=== PATIENT | female | born 1935 | race Asian ===

== ENCOUNTER 2018-09-04 11:55 | Inpatient (IN) ==
[2018-09-04] MEDS ORDERED: ACETAMINOPHEN 325 MG TAB PO STA (12:32)
--- NOTE | 2018-09-04 13:06 | XRay Report ---
XR hip RT 2-3V w pelvis CLINICAL HISTORY: Right hip pain status post trauma COMPARISON: None DISCUSSION: There is a subcapital right hip fracture. There is no dislocation. IMPRESSION: 1. Subcapital right hip fracture. No evidence of dislocation. Electronically signed by: Christian Chavez M.D. 09/04/2018 1:04 PM
--- NOTE | 2018-09-04 13:06 | XRay Report ---
XR femur RT 2V routine CLINICAL HISTORY: fall, pain COMPARISON: None. DISCUSSION: There is a subcapital right hip fracture. There is no dislocation. No additional femoral fractures are visualized. IMPRESSION: Subcapital right hip fracture. Electronically signed by: Christian Chavez M.D. 09/04/2018 1:05 PM
[2018-09-04] MEDS ORDERED: ONDANSETRON INJ 2 MG/ML 2 ML VIAL IV STA (13:31)
[2018-09-04] MEDS ORDERED: MoRPHine SULFATE 2 MG/ML CARP IV PRN (13:31)
[2018-09-04] MEDS ORDERED: SODIUM CHLORIDE 0.9% 500 ML IV ONE (13:31)
--- NOTE | 2018-09-04 13:46 | XRay Report ---
XR chest 1V portable CLINICAL HISTORY: Hip fracture. Preoperative chest COMPARISON STUDY: None FINDINGS: The heart is normal in size. There is aortic tortuosity. There is no failure. There is no f ocal pulmonary consolidation. There are no pleural effusions.[ IMPRESSION: No active disease in the chest. Electronically signed by: Christian Chavez M.D. 09/04/2018 1:44 PM
[2018-09-04 14:07] LABS: Hemoglobin 14.4 g/dL (12.0-16.0); Mean Corpuscular Hgb Conc 32.7 g/dL (32-36); Mean Corpuscular Volume 88.2 fL (80-100); Mean Platelet Volume 9.3 fL (7.4-10.4); Platelet Count 240 K/uL (130-400); RDW Coefficient of Variation 14.3 % (11.5-14.5); RDW Standard Deviation 45.8 fL (36.4-46.3); Red Blood Count 4.99 M/uL (4.2-5.4); White Blood Count 10.83 K/uL (4.8-10.8)
[2018-09-04 14:25] LABS: Albumin Level 3.5 gm/dl (3.4-5.0); BUN Creatinine Ratio 11.1 (10-20); Calcium 8.8 mg/dl (8.5-10.1); Creatinine Clr Calc Pharmacy 30.1 ml/min; Est GFR (Non-African American) 52.6; Potassium 3.6 mmol/L (3.5-5.1)
[2018-09-04 14:28] LABS: Albumin Globulin Ratio 0.7 (0.9-2); Bilirubin,Total 0.7 mg/dl (0.2-1); Globulin 4.7 gm/dl (2.5-4.0); Total Protein 8.2 gm/dl (6.4-8.2)
[2018-09-04 14:52] LABS: Partial Thromboplastin Ratio 1.1; Partial Thromboplastin Time 29.8 Seconds (21.0-31.0)
[2018-09-04 14:59] LABS: Appearance Urine Clear (Clear); Bacteria Urine Automated Negative (Negative); Bilirubin Urine Negative (Negative); Color Urine Yellow; Epithelial Cell Urine Auto 20-30 /lpf (0-5); Glucose Urine UA Negative (Negative); Ketones Urine Negative (Negative); Leukocyte Esterase Urine Trace (Negative); Nitrite Urine Negative (Negative); Protein Urine Trace (Negative); Urobilinogen Urine Negative (Negative)
--- NOTE | 2018-09-04 15:21 | Emergency Department Note ---
Entered by Jameel Johnson acting as a scribe for Rafael Cortes MD History of Present Illness General Chief complaint: Fall Stated complaint: FALL Time Seen by Provider: 09/04/18 12:18 Source: patient and family (son) History of Present Illness Onset (ago): day(s) (last night) Location: right (hip) Pain Consistency: + constant Quality: + other (right hip pain after fall) Exacerbated By: + movement Associated symptoms: + other (denies neck pain or right arm pain; denies recent illness); no headaches The patient is an 83 year old female who presents to the Emergency Room with complaints of constant right leg/hip pain beginning after a fall occurring last night. The son reports that last night at the [facility], he walked out of the room, and when he came back in the patient was lying on the floor on her side by her bedside commode. Since the fall, the patient has been complaining of right hip pain that is worsened with movement. He noticed this morning that the patient�s glasses were broken on the right side and reports an abrasion near her right eye. The patient denies headaches, neck pain, or right arm pain. The son states that she does not take blood thinners and denies recent fevers, cough, or other illness. He notes that prior to last night the patient had been relatively stable using her walker to travel to and from the bathroom. He states that the patient has recently been eating more. He reports that the patient had right SI joint issues a few years ago that was treated with cortisone and physical therapy. He denies a history of hip surgeries. Home Medications Home Medications Medication Instructions Recorded Confirmed Type cholecalciferol (vitamin D3) 1,000 unit PO QAM 09/04/18 09/04/18 History [Vitamin D3] docusate sodium [Colace] 100 mg PO BID 09/04/18 09/04/18 History mirtazapine 15 mg PO HS 09/04/18 09/04/18 History quetiapine [Seroquel] 25 mg PO BID 09/04/18 09/04/18 History Allergies Allergy/AdvReac Type Severity Reaction Status Date / Time methylphenidate Allergy Severe Palpitation Unverified 09/04/18 13:15 [From Ritalin] s bupropion Allergy Intermediate Nausea Unverified 09/04/18 13:15 desvenlafaxine [From Pristiq] Allergy Intermediate Nausea Unverified 09/04/18 13 :15 Sulfa (Sulfonamide Allergy Intermediate Nausea Unverified 09/04/18 13:15 Antibiotics) trazodone Allergy Intermediate Nausea Unverified 09/04/18 13:15 vilazodone Allergy Intermediate Nausea Unverified 09/04/18 13:15 Past Med/Surg History Medical History Alzheimer disease (Chronic) Osteoporosis (Chronic) Alzheimer's disease (Chronic) Surgical History Hx of cholecystectomy (Resolved) History of parathyroidectomy (Resolved) Family History Other Diabetes Social History Current Living Situation: Family Current Living Situation Comment: lives with son and family Other Information That Helps Us Care for You: No Feels Safe at Home: Yes Safety Concerns: Feels Safe At This Time Smoking Status: Never smoker Do You Dip or Chew Tobacco: No Second Hand Exposure: No Tobacco Cessation Education Requested by Patient: No Hx Alcohol Use: No Hx Substance Use: No Beliefs That Will Affect Care: None Preferred Language: Sinhala Communication Ability: dementia Street Commissioner Required: No Review of Systems See HPI for pertinent positives & negatives. and A total of 10 systems reviewed and were otherwise negative Physical Exam Vital Signs Vital Signs - 24 hr 09/04/18 12:02 09/04/18 14:50 09/04/18 15:58 Temperature 37.6 C H Temperature Source Oral Sepsis Recent Fever Within 48 Hours No Sepsis New/Unexplained Change in Mental Status No Sepsis Action Taken by Nursing No Action Required Pulse Rate 99 H 90 Pulse Rate [Finger] 90 Respiratory Rate 16 20 17 Respiratory Effort / Characteristics Non-Labored Respiratory Depth Normal Respiratory Pattern Regular Blood Pressure 152/87 H 160/86 H Blood Pressure [Right Arm] 150/93 H Blood Pressure Mean 108 Blood Pressure Mean [Right Arm] 112 Blood Pressure Position [Right Arm] Lying Pulse Oximetry 95 97 92 Oxygen Delivery Method Room Air Room Air Room Air 09/04/18 16:35 Temperature 37.4 C Temperature Source Oral Sepsis Recent Fever Within 48 Hours Sepsis New/Unexplained Change in Mental Status Sepsis Action Taken by Nursing Pulse Rate Pulse Rate [Finger] 88 Respiratory Rate 16 Respiratory Effort / Characteristics Respiratory Depth Respiratory Pattern Blood Pressure Blood Pressure [Right Arm] 151/88 H Blood Pressure Mean Blood Pressure Mean [Right Arm] 109 Blood Pressure Position [Right Arm] Sitting Pulse Oximetry 92 Oxygen Delivery Method Room Air GENERAL: Patient is in no acute distress. HEENT: Abrasion to the area just lateral of the right eye, no laceration, no bony step-off. Right globe uninjured, no scalp hematoma. Mucous membranes are moist. NECK: No stridor, no adenopathy, no meningismus, trachea is midline. LUNGS: Clear to auscultation bilaterally, no wheeze, no rhonchi, breath sounds equal. HEART: Without murmurs gallops or rubs, regular rate and rhythm. ABDOMEN: Soft, nontender, bowel sounds positive, no hernias, no peritonitis. EXTREMITIES: Some pain in the right hip with right leg movement, no gross deformity. Right mid femur is somewhat tender. No obvious contusions. Right knee and ankle are non-tender. NEUROLOGIC: Oriented x 3, no acute motor or sensory deficits, no focal weakness. SKIN: No rash, no jaundice, no diaphoresis. Course 1220: Past medical records reviewed. The patient was evaluated in room D9, and a complete history and physical examination were performed. 1328: I discussed test results with the patient and her family. They are aware that the patient will require an operation. 1338: I consulted Cassandra Boland PA-C: [facility] Hospitalist. She will reevaluate the patient for hospitalization. Consultations Consultation #1: I consulted Cassandra Boland PA-C: [facility]ist. She will reevaluate the patient for hospitalization. Time: 13:38 Administered Medications Discontinued Medications Acetaminophen (Tylenol) 650 mg PO NOW STA Stop: 09/04/18 12:33 Last Admin: 09/04/18 12:35 Dose: 650 mg Sodium Chloride (Nss) 500 mls @ 999 mls/hr IV .Q31M ONE Stop: 09/04/18 14:01 Last Infusion: 09/04/18 14:52 Dose: 0 mls/hr Admin: 09/04/18 14:11 Dose: 999 mls/hr Morphine Sulfate (Morphine Sulfate) 2 mg IV Q30M PRN PRN Reason: Pain Stop: 09/18/18 13:30 Last Admin: 09/04/18 14:11 Dose: 2 mg Ondansetron HCl (Zofran) 4 mg IV NOW STA Stop: 09/04/18 13:32 Last Admin: 02/17/19 14:11 Dose: 4 mg Medical Decision Making Differential Diagnosis Differential diagnosis: pelvic fracture, hip or femur fracture, contusion, hematoma, sprain, intracranial bleeding, facial fracture, cervical spine injury , infection Medical Records Attestation: I reviewed the patient's medical records. Home Medications Current Medication List: was personally reviewed by me Laboratory Data Attestation: I reviewed the patient's lab results. Result diagrams: 09/04/18 13:58 09/04/18 13:58 Lab Results 09/04/18 09/04/18 09/04/18 Range/Units 13:58 13:58 13:58 WBC 10.83 H (4.8-10.8) K/uL RBC 4.99 (4.2-5.4) M/uL Hgb 14.4 (12.0-16.0) g/dL Hct 44.0 (37-47) % MCV 88.2 (80-100) fL MCH 28.9 (25-34) pg MCHC 32.7 (32-36) g/dL RDW Std Deviation 45.8 (36.4-46.3) fL RDW Coeff of Jayme 14.3 (11.5-14.5) % Plt Count 240 (130-400) K/uL MPV 9.3 (7.4-10.4) fL PT 10.0 (9.0-12.0) Seconds INR 1.0 (0.9-1.1) APTT 29.8 (21.0-31.0) Seconds PTT Ratio 1.1 Sodium 139 (136-145) mmol/L Potassium 3.6 (3.5-5.1) mmol/L Chloride 106 (98-107) mmol/L Carbon Dioxide 28 (21-32) mmol/L Anion Gap 5.0 (3-11) BUN 11 (7-18) mg/dl Creatinine 0.98 (0.6-1.2) mg/dl Est Cr Clr Drug Dosing 30.1 ml/min Est GFR ( Amer) 61.0 Est GFR (Non-Af Amer) 52.6 BUN/Creatinine Ratio 11.1 (10-20) Glucose 126 H (70-99) mg/dl Calcium 8.8 (8.5-10.1) mg/dl Total Bilirubin 0.7 (0.2-1) mg/dl AST 23 (15-37) U/L ALT 24 (12-78) U/L Alkaline Phosphatase 88 (45-117) U/L Total Protein 8.2 (6.4-8.2) gm/dl Albumin 3.5 (3.4-5.0) gm/dl Globulin 4.7 H (2.5-4.0) gm/dl Albumin/Globulin Ratio 0.7 L (0.9-2) Urine Color Urine Appearance (Clear) Urine pH (4.5-7.5) Ur Specific [place] (1.000-1.030) Urine Protein (Negative) Urine Glucose (UA) (Negative) Urine Ketones (Negative) Urine Blood (Negative) Urine Nitrite (Negative) Urine Bilirubin (Negative) Urine Urobilinogen (Negative) Ur Leukocyte Esterase (Negative) Urine WBC (Auto) (0-5) /hpf Urine RBC (Auto) (0-4) /hpf U Hyaline Cast (Auto) (0-5) /lpf U Epithel Cells (Auto) (0-5) /lpf Urine Bacteria (Auto) (Negative) 09/04/18 Range/Units 14:26 WBC (4.8-10.8) K/uL RBC (4.2-5.4) M/uL Hgb (12.0-16.0) g/dL Hct (37-47) % MCV (80-100) fL MCH (25-34) pg MCHC (32-36) g/dL RDW Std Deviation (36.4-46.3) fL RDW Coeff of Jayme (11.5-14.5) % Plt Count (130-400) K/uL MPV (7.4-10.4) fL PT (9.0-12.0) Seconds INR (0.9-1.1) APTT (21.0-31.0) Seconds PTT Ratio Sodium (136-145) mmol/L Potassium (3.5-5.1) mmol/L Chloride (98-107) mmol/L Carbon Dioxide (21-32) mmol/L Anion Gap (3-11) BUN (7-18) mg/dl Creatinine (0.6-1.2) mg/dl Est Cr Clr Drug Dosing ml/min Est GFR ( Amer) Est GFR (Non-Af Amer) BUN/Creatinine Ratio (10-20) Glucose (70-99) mg/dl Calcium (8.5-10.1) mg/dl Total Bilirubin (0.2-1) mg/dl AST (15-37) U/L ALT (12-78) U/L Alkaline Phosphatase (45-117) U/L Total Protein (6.4-8.2) gm/dl Albumin (3.4-5.0) gm/dl Globulin (2.5-4.0) gm/dl Albumin/Globulin Ratio (0.9-2) Urine Color Yellow Urine Appearance Clear (Clear) Urine pH 7.0 (4.5-7.5) Ur Specific [place] 1.020 (1.000-1.030) Urine Protein Trace H (Negative) Urine Glucose (UA) Negative (Negative) Urine Ketones Negative (Negative) Urine Blood Trace H (Negative) Urine Nitrite Negative (Negative) Urine Bilirubin Negative (Negative) Urine Urobilinogen Negative (Negative) Ur Leukocyte Esterase Trace H (Negative) Urine WBC (Auto) 1-5 (0-5) /hpf Urine RBC (Auto) 5-10 H (0-4) /hpf U Hyaline Cast (Auto) 1-5 (0-5) /lpf U Epithel Cells (Auto) 20-30 H (0-5) /lpf Urine Bacteria (Auto) Negative (Negative) Imaging Data Radiologist's Impression: Radiology results as stated below per my review and the radiologist's interpretation: XR chest 1V portable CLINICAL HISTORY: Hip fracture. Preoperative chest COMPARISON STUDY: None FINDINGS: The heart is normal in size. There is aortic tortuosity. There is no failure. There is no focal pulmonary consolidation. There are no pleural effusions.[ IMPRESSION: No active disease in the chest. Electronically signed by: Christian Chavez M.D. 09/04/2018 1:44 PM XR femur RT 2V routine CLINICAL HISTORY: fall, pain COMPARISON: None. DISCUSSION: There is a subcapital right hip fracture. There is no dislocation. No additional femoral fractures are visualized. IMPRESSION: Subcapital right hip fracture. Electronically signed by: Christian Chavez M.D. 09/04/2018 1:05 PM XR hip RT 2-3V w pelvis CLINICAL HISTORY: Right hip pain status post trauma COMPARISON: None DISCUSSION: There is a subcapital right hip fracture. There is no dislocation. IMPRESSION: 1. Subcapital right hip fracture. No evidence of dislocation. Electronically signed by: Christian Chavez M.D. 09/04/2018 1:04 PM ECG Data Attestation: I personally reviewed and interpreted this ECG as follows: Indication: other (hip fracture) Rate (beats per minute): 93 Rhythm: normal sinus Findings: + other (potential old septal infarct) and + nonspecific-ST abn; no PVC and no ST elevation Blood Pressure Blood Pressure Findings: Elevated blood pressure Blood Pressure Disposition: further management by hospitalist Head Trauma GCS Score: 15 MDM Narrative There is no leukocytosis or concerning anemia. No coagulopathy. No significant electrolyte abnormality, kidney failure or hepatitis. Urinalysis does not show evidence for infection. EKG shows a sinus rhythm, no dysrhythmia or acute ischemia. Chest film does not show pneumonia or CHF. Pelvis and right hip and femur films demonstrate a right subcapital hip fracture, no pelvis fracture. The patient was given oral Tylenol. She was given IV morphine and IV Zofran. She received IV saline. With the findings of hip fracture, the patient does require orthopedic intervention and a hospital stay. I discussed this with the family. I spoke to case management. The on-call hospitalist was consulted. The patient does not appear to have a serious injury elsewhere. The abrasion to the area of the face just lateral to the eye is likely from her glasses. She does not take any blood thinners, she does not have a headache. No evidence for cervical injury by exam. Impression & Plan Closed right hip fracture, Fall, Abrasion of face Discharge Plan Visit Data *Final* Discharge Date/Time: 09/04/18 15:58 Chief Complaint: Fall Stated Complaint: FALL ED Provider: Rafael Cortes Discharge Problem: Closed right hip fracture, Fall, Abrasion of face Patient Disposition: Admitted As Inpatient Discharge Instructions Interventions: ED Discharge Assessment Last Done: 09/04/18 15:58 The scribe's documentation has been prepared under my direction and personally reviewed by me in its entirety. I confirm that the note above accurately reflects all work, treatment, procedures, and medical decision making performed by me.
--- NOTE | 2018-09-04 15:37 | History & Physical Report ---
Date of Service September 04, 2018 Assessment & Plan (1) Fall: (2) Closed right hip fracture: This is an 83-year-old female with a PMH of Alzheimer's disease and osteoporosis who presents after a fall in her hotel room last evening and was found to have a R subcapital right hip fracture. -Discussed with Dr. Hayes, who plans to take patient to OR tomorrow -NPO after midnight except meds -Pain control, pre-op antibiotics ordered per geriatric fracture protocol -Anesthesiology, ortho surgery services consulted -Pre-operative lab work: hgb stable at 14.4, Cr of 0.98, GFR of 52.6, coags WNL -EKG, chest XR without acute abnormalities -Per Revised Cardiac Risk Index for Pre-Op Risk, there is a 0.4% risk of major cardiac event -Family interested in patient completing any rehab closer to home ([facility] ) -Discharge planning ordered DVT Ppx: SCDs Code status: FULL per discussion with patient PCP: Dr. Durbin in [place] Dispo: Admitted to med/surg. Discharge planning ordered. Patient seen in collaboration with Dr. Grigsby. Please see addendum. History of Present Illness Chief Complaint: Fall last evening, hip fracture Primary Care Provider: MAGDALENO DURBIN This is an 83-year-old female with a PMH of Alzheimer's disease and osteoporosis who presents after a fall in her hotel room last evening. Patient is traveling with her son and [id number] from [facility] for the weekend. Was using bedside commode in her hotel room when she slid off, landing on her right side. Denies head trauma or LOC. Was initially complaining of right knee pain but was able to sleep through the night. This morning, son was attempting to help transfer patient but she was having difficulty moving due to pain. Brought her to the ED for further evaluation. Patient endorses constant right hip pain, exacerbated by movement and somewhat alleviated by IV morphine. Has an abrasion on side of face that is non-tender. Denies any fever, chills, lightheadedness, headache, chest pain, palpitations, shortness of breath , nausea, vomiting, abdominal pain, dysuria, diarrhea or constipation. Last bowel movement was yesterday. Patient's PCP is located in [facility]. Ambulatory baseline is with a walker at home, but uses a wheelchair when traveling. No known cardiac or pulmonary medical history. Denies history of MA, CHF, DVT/PE, CVA or CKD. A few years ago, was experiencing failure to thrive due and appetite suppression from medications for dementia and was placed on hospice. Once medications were stopped, the patient reportedly gained 40 pounds and was taken off of hospice. Health has been much better since then. Son and [id number] live with patient. Allergies Allergy/AdvReac Type Severity Reaction Status Date / Time methylphenidate Allergy Severe Palpitation Unverified 09/04/18 13:15 [From Ritalin] s bupropion Allergy Intermediate Nausea Unverified 09/04/18 13:15 desvenlafaxine [From Pristiq] Allergy Intermediate Nausea Unverified 09/04/18 13 :15 Sulfa (Sulfonamide Allergy Intermediate Nausea Unverified 09/04/18 13:15 Antibiotics) trazodone Allergy Intermediate Nausea Unverified 09/04/18 13:15 vilazodone Allergy Intermediate Nausea Unverified 09/04/18 13:15 Home Medications Home Medications Medication Instructions Recorded Confirmed Type cholecalciferol (vitamin D3) 1,000 unit PO QAM 09/04/18 09/04/18 History [Vitamin D3] docusate sodium [Colace] 100 mg PO BID 09/04/18 09/04/18 History mirtazapine 15 mg PO HS 09/04/18 09/04/18 History quetiapine [Seroquel] 25 mg PO BID 09/04/18 09/04/18 History Past Med/Surg History Medical History Alzheimer disease (Chronic) Osteoporosis (Chronic) Alzheimer's disease (Chronic) Surgical History Hx of cholecystectomy (Resolved) History of parathyroidectomy (Resolved) Family History Other Diabetes Social History Current Living Situation: Family Current Living Situation Comment: lives with son and family Other Information That Helps Us Care for You: No Feels Safe at Home: Yes Safety Concerns: Feels Safe At This Time Smoking Status: Never smoker Do You Dip or Chew Tobacco: No Second Hand Exposure: No Tobacco Cessation Education Requested by Patient: No Hx Alcohol Use: No Hx Substance Use: No Beliefs That Will Affect Care: None Preferred Language: Gabonese Communication Ability: dementia Stock Or Delivery Clerk Required: No Review of Systems Constitutional: no fever, no chills, no fatigue and no weakness Eyes: no worsening vision Ear, Nose, Mouth, Throat: no nasal congestion, no sore throat and no dysphagia Respiratory: no cough, no chest congestion, no dyspnea and no wheezing Cardiovascular: no chest pain, no radiating jaw, neck or arm pain, no syncope and no edema Gastrointestinal: no abdominal pain, no nausea, no vomiting and no change in stools Genitourinary (Female): no dysuria and no hematuria Musculoskeletal: + problem reported (Right hip pain since fall); no back pain Integumentary: no rash, no non-healing lesions and no change in skin color Neurologic: + falls; no localized weakness, no numbness, no seizure-like activity, no headache(s) and no confusion Psychiatric: no behavioral changes Physical Exam 2 Vital Signs (Past 24 Hours): Last Vital Signs Temp 37.6 C H 09/04/18 12:02 Pulse 90 09/04/18 14:50 Resp 20 09/04/18 14:50 BP 150/93 H 09/04/18 14:50 Pulse Ox 97 09/04/18 14:50 Physical Exam: General Appearance: WD/WN, no apparent distress, mild distress from pain Head: normocephalic, atraumatic Eyes: normal inspection, PERRL, EOMI ENT: hearing grossly normal, pharynx normal (moist mucous membranes) Neck: supple, no JVD, no adenopathy Respiratory/Chest: lungs clear to auscultation. No wheezes, rales or rhonci. No respiratory distress or accessory muscle use Cardiovascular: regular rate, rhythm, no murmur, normal peripheral pulses Abdomen/GI: normal bowel sounds, soft, non-tender to palpation : Cervantes catheter in place Extremities/Musculoskelatal: normal inspection, no calf tenderness, normal capillary refill, no pedal edema. Right hip tender to palpation. Skin intact. No deformities or bruising noted. Neurologic/Psych: alert, normal mood/affect, oriented x 3 Skin: normal color, warm/dry Results & Data Laboratory Results Short CBC 09/04/18 Range/Units 13:58 WBC 10.83 H (4.8-10.8) K/uL Hgb 14.4 (12.0-16.0) g/dL Hct 44.0 (37-47) % Plt Count 240 (130-400) K/uL BMP 09/04/18 13:58 Sodium 139 Potassium 3.6 Chloride 106 Carbon Dioxide 28 BUN 11 Creatinine 0.98 Glucose 126 H Calcium 8.8 Liver Function 09/04/18 Range/Units 13:58 Total Bilirubin 0.7 (0.2-1) mg/dl AST 23 (15-37) U/L ALT 24 (12-78) U/L Alkaline Phosphatase 88 (45-117) U/L Albumin 3.5 (3.4-5.0) gm/dl Urine 09/04/18 Range/Units 14:26 Urine Color Yellow Urine Appearance Clear (Clear) Urine pH 7.0 (4.5-7.5) Ur Specific [place] 1.020 (1.000-1.030) Urine Protein Trace H (Negative) Urine Glucose (UA) Negative (Negative) Diagnostic Findings CXR: IMPRESSION: No active disease in the chest. Hip/pelvis XR: IMPRESSION: 1. Subcapital right hip fracture. No evidence of dislocation. Femur XR: IMPRESSION: Subcapital right hip fracture. ECG Rhythm: normal sinus Additional Comments: Septal infarct , age undetermined Code Status & VTE Plan Code Status FULL VTE Prophylaxis Plan VTE Prophylaxis will be ordered: Yes Supervising Physician Co-Signing Physician Notes 83-year-old female with a PMH of Alzheimer's disease and osteoporosis who presents to the ER after a fall in her hotel room last night when she was using the commode. This morning she was having difficulty to move due to the pain. She denies any head trauma and LOC during the fall. Femur/hip xray showed subcapital right hip fracture with no evidence of dislocation. Currently denies any chest pain, palpitation, dizziness and SOB. Case discussed with Dr. Hayes, who plans to take patient to OR tomorrow. Pt denies any cardiac history, no breathing problems in the past. Using a walker to ambulate at home at baseline with no chest discomfort or SOB. EKG showed no ischemic changes. CXR showed heart is normal in size and no failure. Pt is stable to proceed to hip surgery. Major side effect discussed with patient such as bleeding, infection, MA and . Ortho will discuss in detail with patient about the surgery. Will make NPO after midnight. Continue pain control. Fall precaution. Calista, MD _ (1) Fall Encounter type: initial encounter Qualified Code(s): W19.XXXA - Unspecified fall, initial encounter (2) Closed right hip fracture Encounter type: initial encounter Fracture healing: Qualified Code(s): S72.001A - Fracture of unspecified part of neck of right femur, initial encounter for closed fracture
[2018-09-04] MEDS ORDERED: MAGNESIUM HYDROXIDE SUSP 30 ML UDC PO PRN (16:55)
[2018-09-04] MEDS ORDERED: BISACODYL 10 MG SUPP PR PRN (16:55)
[2018-09-04] MEDS ORDERED: NALOXONE HCL 0.4 MG/1 ML VIAL/CARP IV PRN (16:55)
[2018-09-04] MEDS ORDERED: ONDANSETRON INJ 2 MG/ML 2 ML VIAL IV PRN (16:55)
[2018-09-04] MEDS ORDERED: SOD PHOSPHATE/SOD BIPHOSPHATE ENEMA 132 ML BTL PR PRN (16:55)
--- NOTE | 2018-09-04 20:10 | Anesthesiology Consultation ---
Date of Service September 04, 2018 Assessment & Plan Chart Review Chart Review: Acceptable Risk for Surgery and Patient NOT seen in Pre Admission Testing Spoke at length with patient's son (Peña Crawley) regarding his mother's health and also discussed the anesthetic plan with him. Patient has been consented for either SAB with sedation (he stated she is not on any blood thinning medications and has no valvular heart disease per his knowledge) or general anesthesia. All questions were answered and verbal consent was obtained with floor nurse as a witness. Peña's phone number is [phone]. Consults Requested none Per attending service: "Revised Cardiac Risk Index for Pre-Op Risk, there is a 0.4% risk of major cardiac event" History Height/Weight Height: 5 ft Weight: 47.627 kg Allergies Allergy/AdvReac Type Severity Reaction Status Date / Time methylphenidate Allergy Severe Palpitation Unverified 09/04/18 13:15 [From Ritalin] s bupropion Allergy Intermediate Nausea Unverified 09/04/18 13:15 desvenlafaxine [From Pristiq] Allergy Intermediate Nausea Unverified 09/04/18 13 :15 Sulfa (Sulfonamide Allergy Intermediate Nausea Unverified 09/04/18 13:15 Antibiotics) trazodone Allergy Intermediate Nausea Unverified 09/04/18 13:15 vilazodone Allergy Intermediate Nausea Unverified 09/04/18 13:15 Medications Home Medications Medication Instructions Recorded Confirmed Last Taken cholecalciferol (vitamin D3) 1,000 unit PO QAM 09/04/18 09/04/18 09/03/18 [Vitamin D3] docusate sodium [Colace] 100 mg PO BID 09/04/18 09/04/18 09/03/18 21:00 mirtazapine 15 mg PO HS 09/04/18 09/04/18 09/03/18 quetiapine [Seroquel] 25 mg PO BID 09/04/18 09/04/18 09/03/18 21:00 Past Medical History Medical History Osteoporosis (Chronic) Alzheimer's disease (Chronic) Closed right hip fracture (Acute) Fall (Acute) mechanical Past Family History Family History Other Diabetes Past Surgical History Surgical History Hx of cholecystectomy (Resolved) History of parathyroidectomy (Resolved) H/O esophagogastroduodenoscopy Past Anesthesia History No Hx of Anesthesia Complications and No Family Hx of Anesthesia Complications Social History Smoking Status: Never smoker Do You Dip or Chew Tobacco: No Hx Alcohol Use: No Hx Substance Use: No substance use type: does not use Exercise / Class Metabolic Activity IV < 2 Limit ADL/Bedbound uses wheelchair when traveling and a walker around her residence. Physical Exam Vital Signs Last Vital Signs Temp 37.4 C 09/04/18 16:35 Pulse 88 09/04/18 16:35 Resp 16 09/04/18 16:35 BP 151/88 H 09/04/18 16:35 Pulse Ox 92 09/04/18 16:35 ENMT Mouth: + dentition abnormality, + poor dentition and + chipped teeth Thyromental Distance: > or= 3.5 Finger Breadths Mallampati Class: III has lost several caps previously. son does not think any teeth are loose currently. Testing Electrocardiogram Date: 09/04/18 Findings: + NSR @ (93) Normal sinus rhythm Septal infarct , age undetermined Abnormal ECG No previous ECGs available Chest X-Ray Date: 09/04/18 CLINICAL HISTORY: Hip fracture. Preoperative chest COMPARISON STUDY: None FINDINGS: The heart is normal in size. There is aortic tortuosity. There is no failure. There is no focal pulmonary consolidation. There are no pleural effusions.[ IMPRESSION: No active disease in the chest. Laboratory Results 09/04/18 13:58 09/04/18 13:58 Blood Type O Positive 09/04/18 17:10 Antibody Screen NEGATIVE 09/04/18 17:10 PT 10.0 Seconds (9.0-12.0) 09/04/18 13:58 INR 1.0 (0.9-1.1) 09/04/18 13:58 APTT 29.8 Seconds (21.0-31.0) 09/04/18 13:58 Urine Color Yellow 09/04/18 14:26 Urine Appearance Clear (Clear) 09/04/18 14:26 Urine pH 7.0 (4.5-7.5) 09/04/18 14:26 Ur Specific Ilion 1.020 (1.000-1.030) 09/04/18 14:26 Urine Protein Trace (Negative) H 09/04/18 14:26 Urine Glucose (UA) Negative (Negative) 09/04/18 14:26 Urine Ketones Negative (Negative) 09/04/18 14:26 Urine Nitrite Negative (Negative) 09/04/18 14:26 Ur Leukocyte Esterase Trace (Negative) H 09/04/18 14:26 Urine WBC (Auto) 1-5 /hpf (0-5) 09/04/18 14:26 Urine RBC (Auto) 5-10 /hpf (0-4) H 09/04/18 14:26 U Hyaline Cast (Auto) 1-5 /lpf (0-5) 09/04/18 14:26 U Epithel Cells (Auto) 20-30 /lpf (0-5) H 09/04/18 14:26 Urine Bacteria (Auto) Negative (Negative) 09/04/18 14:26
--- NOTE | 2018-09-04 21:06 | XRay Report ---
XR hip RT 1V CLINICAL HISTORY: Right hip fracture COMPARISON: 09/04/2018 DISCUSSION: The subcapital right hip fracture suspected on the prior films is not visualized on this crosstable lateral view. A CT scan or MRI could be obtained in follow-up for confirmation. IMPRESSION: The suspected subcapital hip fracture is not visualized with certainty on this crosstable lateral view. A CT scan or MRI could be obtained for confirmation as deemed clinically necessary Electronically signed by: Christian Chavez M.D. 09/04/2018 9:04 PM
[2018-09-04] MEDS: QUETIAPINE FUMARATE 25 MG TABLET PO SCH (21:32)
[2018-09-04] MEDS: DOCUSATE SODIUM/SENNA 50/8.6MG TAB PO SCH (21:32)
[2018-09-04] MEDS: MIRTAZAPINE TAB 15 MG TAB PO SCH (21:32)
[2018-09-04] MEDS: ACETAMINOPHEN 500 MG TAB PO PRN (21:38)
[2018-09-05 05:40] LABS: Hematocrit (blood only) 41.3 % (37-47); Hemoglobin 13.3 g/dL (12.0-16.0); Mean Corpuscular Hgb Conc 32.2 g/dL (32-36); Mean Platelet Volume 9.7 fL (7.4-10.4); Platelet Count 222 K/uL (130-400); RDW Coefficient of Variation 14.4 % (11.5-14.5); RDW Standard Deviation 46.8 fL (36.4-46.3); Red Blood Count 4.64 M/uL (4.2-5.4); White Blood Count 8.83 K/uL (4.8-10.8)
[2018-09-05] MEDS ORDERED: CEFAZOLIN 1000MG 1,000 MG/7.5 ML SYR IV SCH (06:00)
[2018-09-05] MEDS ORDERED: CEFAZOLIN 2000MG 2,000 MG/15 ML SYR IV SCH ×2 (06:00)
[2018-09-05 06:02] LABS: BUN Creatinine Ratio 11.3 (10-20); Calcium 8.3 mg/dl (8.5-10.1); Creatinine Clr Calc Pharmacy 30.5 ml/min; Est GFR (African American) 61.7; Est GFR (Non-African American) 53.3; Potassium 3.6 mmol/L (3.5-5.1)
[2018-09-05] MEDS ORDERED: BUPIVACAINE 0.5 % 5 MG/1 ML PF 10ML VIAL ONE ×2 (06:44→10:21)
[2018-09-05] MEDS: QUETIAPINE FUMARATE 25 MG TABLET PO SCH ×2 (07:30→20:10)
--- NOTE | 2018-09-05 08:13 | Consultation Report ---
DATE: 09/05/2018 HISTORY OF PRESENT ILLNESS: The patient is an 83-year-old female. She is visiting the area from [place] with her son. She fell off of the toilet the day prior to admission injuring her right leg. She was able to ambulate and get around with pain. The following day, her mobility worsened and she was brought to the Emergency Room. X-rays revealed she had an impacted right femoral neck fracture. She has been admitted by Medicine. She ambulates with a walker and also uses a transport chair. She lives with her son in [place]. She had a facial infection treated by sulfa antibiotics last year. This resulted in a failure to thrive scenario and she was placed on hospice. She eventually recovered somewhat, gained weight and was taken off hospice. She has early dementia and osteoporosis. There are otherwise no problems with heart, lung, liver or kidney disease. No problems with bleeding, blood clots, metal sensitivity or infection. ALLERGIES: Noted on the chart. MEDICATIONS: Include vitamin D, Colace, mirtazapine and Seroquel. PAST SURGICAL HISTORY: She has had a parathyroidectomy and cholecystectomy. LABORATORY DATA: Noted and she has a normal white count, hemoglobin 13, hematocrit 41, platelet count is 222. Her coags are within normal limits and her PRP shows a slightly elevated chloride and low calcium. PHYSICAL EXAMINATION: She wiggles the toes on her right foot. She can dorsiflex slightly, but not against resistance. She has 5-/5 strength on dorsiflexion resistance on the left, but perhaps only 3/5 on the right. She has the same for plantar flexion. She cannot bend her right knee or move her right leg. Log rolling causes pain in the hip. The right leg is nontender to palpation. There is no bruising or swelling. Her posterior tib pulse is 1+. No deformity. DIAGNOSTIC IMAGING: Radiographs of the pelvis, femur and hip demonstrate an impacted right subcapital fracture of the femoral neck. There is valgus impaction without significant anterior or posterior angulation. IMPRESSION: Impacted femoral neck fracture. PLAN: This is a stable, minimally to nondisplaced fracture. It is suitable for cannulated screws. I would recommend an operation. The alternative is a hemiarthroplasty. We talked about the pros and cons of operative and nonoperative management. The risks and benefits of surgery were discussed and an informed consent was obtained with her son who has power of deputy county attorney. The patient is arousable and does respond to questions, although she cannot specifically state where her leg hurts. Her son and I identified the operative site as the right hip and I marked with my initials. The plan is to take her to surgery today for the aforementioned surgical procedure. She has been seen and evaluated by Medicine. N.p.o. She is not on any blood thinners. KRISTA
[2018-09-05] MEDS ORDERED: PROPOFOL IV EMULSION 10 MG/ML 20 ML VIAL IV ONE (09:13)
[2018-09-05] MEDS ORDERED: MIDAZOLAM HCL 1 MG/ML 2ML VIAL ONE ×3 (09:13→11:15)
[2018-09-05] MEDS ORDERED: KETAMINE HCL INJ 50 MG/ML 10 ML VIAL ONE (09:27)
[2018-09-05] MEDS ORDERED: ATROPINE SULFATE 0.1 MG/ML 10ML SYR IV PRN (10:08)
[2018-09-05] MEDS ORDERED: ePHEDrine sulfate 50 MG/ML AMP IV PRN (10:08)
--- NOTE | 2018-09-05 11:38 | Operative Report ---
Post Operative Report Pre & Post Diagnosis Operation Date: 09/05/18 09:40 Pre-Op Diagnosis: RIGHT HIP FRACTURE Post-Op Diagnosis: RIGHT HIP FRACTURE Procedure Operation Date: 09/05/18 09:40 Actual Procedures p Right Hip Percutaneous Screw(Right) - Fantasma Hayes MD Surgeon Fantasma Hayes MD Pulmonology Technician Holli Thompson Estimated Blood Loss 10 Findings Consistent with Post-Op Diagnosis Specimens None Drains None Anesthesia Type Spinal MAC Complications none Disposition Accompanied Patient To Recovery: No Disposition: Recovery Room Indications Patient is an 83-year-old female with dementia and osteoporosis. She fell sustaining a stable impacted valgus right femoral neck fracture. This is suitable for in situ cannulated screws. She has been seen and evaluated by medicine and cleared for surgery. Description of Procedure Informed consent obtained. Patient identified. Due to her dementia her son who has power of reimbursement auditor identified the operative site as the right hip. I marked with my initials. A preop surgical timeout was performed. A preop dose of IV antibiotics was given. She was taken to the operating room and positioned supine on the fracture table. Care was taken at all times to prevent undue manipulation of the right hip. Prior to this the anesthetic was administered with the injured side up. That is a spinal anesthetic. DVT prophylaxis postoperatively with early mobility and Lovenox. During surgery a SCD was on her left calf. On the fracture table she was positioned with a well-padded perineal post. Her torso was secured to the table with her arms folded over one another. The left leg was placed into 90 degrees hip flexion comfortable external rotation and abduction and held with a padded leg perales. The right leg was placed into neutral suspended position without traction and slight internal rotation. Fluoroscopic images confirmed reduction of the fracture valgus impacted without a without any significant anterior or posterior displacement. This is suitable for in situ pinning. The right leg was then prepped and draped in the usual sterile fashion. The C armor drape and shower curtain were utilized. Fluoroscopic guidance was utilized throughout the procedure. Fluoroscopic imaging was utilized to localize the appropriate area for the incision on the proximal lateral thigh. The incision was made followed by electrocautery down through subcutaneous tissues iliotibial band. Blunt dissection performed through the vastus lateralis. The incision needed to be extended proximally slightly. I then introduced a guide pin for the 7.3 cannulated screws central on the lateral view and inferior against the inferior cortex on the AP view. Was then followed by a second pin which was posterior on the lateral view and superior on the anterior view. The final pin was anterior and superior. Position of all pins was performed in multiplanar fluoroscopy. Pins were sequentially overdrilled and screws of appropriate length were inserted. 16 mm thread lengths were utilized. The inferior and posterior screw was 7.3 cannulated screws. Because I was close to the anterior cortex on the anterior superior screw I used a 6.5 cannulated screw. The threads were within for 5-7 mm of the subchondral bone. The fracture was anatomically aligned. The starting position was at or above the lesser trochanter. The screw threads were across the fracture site. Screws were parallel to the femoral neck. Land Leasing Examiner images were obtained. We then irrigated and obtained hemostasis and closed with a running #1 Vicryl on the iliotibial band. Interrupted 0 and 2 -0 Vicryl for the subcutaneous tissues and skin followed by scottie. A soft sterile dressing was applied Xeroform 4 x 4's ABD and tape. Patient was then awakened from anesthesia without difficulty and taken to the recovery room in stable condition. There were no specimens or complications. Counts were correct. Blood loss was approximately 10 cc. At the conclusion of the operation spoke patient's family and informed of my findings. Detailed postoperative instructions were given. She will be rehabilitated according to the percutaneous screw fixation protocol. She will be able to weight-bear as tolerated with a walker. She will eventually be transferred back to a facility closer to her home in [place]. Synthes screws were utilized. I attest to the content of the Intraoperative Record and any orders documented therein. Any exceptions are noted below.
--- NOTE | 2018-09-05 11:58 | Operative Report ---
Post Operative Report Pre & Post Diagnosis Operation Date: 09/05/18 09:40 Pre-Op Diagnosis: RIGHT HIP FRACTURE Post-Op Diagnosis: RIGHT HIP FRACTURE Procedure Operation Date: 09/05/18 09:40 Actual Procedures p Right Hip Percutaneous Screw(Right) - Fantasma Hayes MD Surgeon Fantasma Hayes M.D. Senior Quality Assurance Specialist Holli Thompson PA-C Estimated Blood Loss 10 Findings Consistent with Post-Op Diagnosis Specimens None Drains None Anesthesia Type Spinal MAC Complications none Disposition Accompanied Patient To Recovery: No Disposition: Recovery Room Indications Patient is an 83-year-old female status post fall injuring her right hip. X- rays were taken she was found to have a nondisplaced subcapital neck fracture right hip. Surgical intervention recommended. Family agreed to proceed with surgery. Informed consent was obtained. Description of Procedure Patient was taken to the operating room and placed under spinal anesthesia IV sedation. She was given 1 g of IV Ancef for surgical prophylaxis. Timeout was performed. She was prepped and draped in routine sterile fashion. I was present during the entire case, and assisted with positioning, exposure, implantation of hardware, closure and dressings. Please see Dr. Hayes's operative report for further detail. Patient was awakened and transferred to recovery room in stable condition. I attest to the content of the Intraoperative Record and any orders documented therein. Any exceptions are noted below.
[2018-09-05] MEDS ORDERED: ONDANSETRON INJ 2 MG/ML 2 ML VIAL IV PRN (13:12)
--- NOTE | 2018-09-05 13:32 | Fluoroscopy Report ---
FL hip RT 2-3V CLINICAL HISTORY: RIGHT HIP FRACTURE COMPARISON STUDY: Right hip 09/04/2018. FLUOROSCOPY TIME: 1 minute and 11 seconds. FINDINGS: 2 fluoroscopic spot images of the right hip demonstrates 3 cannulated screws transfixing th e right femoral neck fracture. The hardware appears intact. IMPRESSION: Fluoroscopy provided for internal fixation of a right femoral neck fracture. Electronically signed by: Prateek Montano M.D. 09/05/2018 1:31 PM
--- NOTE | 2018-09-05 13:35 | Anesthesiology Progress Note ---
Date of Service September 05, 2018 Anesthesia Post Procedure Vital Signs Vital Signs: Temp Pulse Pulse Pulse Pulse Resp BP 09/05/18 13:30 36.4 C 82 18 09/05/18 13:00 36.9 C 83 15 09/05/18 12:45 81 17 09/05/18 12:35 36.3 C L 77 11 L 09/05/18 12:25 71 10 L 09/05/18 12:15 72 15 09/05/18 12:05 75 16 09/05/18 11:55 76 14 09/05/18 11:48 36.0 C L 77 18 09/05/18 09:17 37.1 C 93 H 18 09/05/18 08:01 37.5 C 82 20 09/04/18 22:51 36.6 C 79 14 09/04/18 16:35 37.4 C 88 16 09/04/18 15:58 90 17 160/86 H 09/04/18 14:50 90 20 BP BP Pulse Ox 09/05/18 13:30 139/80 98 09/05/18 13:00 130/87 98 09/05/18 12:45 131/73 100 09/05/18 12:35 134/81 98 09/05/18 12:25 132/71 100 09/05/18 12:15 126/70 100 09/05/18 12:05 120/73 99 09/05/18 11:55 141/78 H 99 09/05/18 11:48 136/77 96 09/05/18 09:17 128/78 91 09/05/18 08:01 164/94 H 93 09/04/18 22:51 125/74 92 09/04/18 16:35 151/88 H 92 09/04/18 15:58 92 09/04/18 14:50 150/93 H 97 Pain Intensity Right Hip: Pain Intensity: 5 Notes Mental Status: alert / awake / arousable and participated in evaluation Patient Amnestic to Procedure: Yes Nausea / Vomiting: adequately controlled Pain: adequately controlled Airway Patency, RR, SpO2: stable & adequate BP & HR: stable & adequate Hydration State: stable & adequate Neuraxial Anesthesia: was administered and sensory block is resolving Anesthetic Complications: no major complications apparent
[2018-09-05] MEDS: SODIUM CHLORIDE 0.9% 1000ML 1,000 ML IV SCH (13:53)
[2018-09-05] MEDS: CEFAZOLIN 1000MG 1,000 MG/7.5 ML SYR IV SCH (16:05)
--- NOTE | 2018-09-05 18:20 | Progress Note ---
DATE: 09/05/2018 She is resting comfortably in bed. Her blood pressure is a little bit high. She is afebrile. She offers no complaint. I discussed with her that the surgery went well. She has a 1+ posterior tibial pulse on the right ankle. Both feet are warm and she reports intact sensation with 5-/5 ankle and toe plantar flexion and dorsiflexion strength bilaterally. Her dressing is clean and dry. Will continue with routine postoperative care. She can weightbear as tolerated and will have Lovenox for DVT prophylaxis.
--- NOTE | 2018-09-05 18:23 | Hospitalist Progress Note ---
Date of Service September 05, 2018 Assessment & Plan (1) Closed right hip fracture: Status post repair. Doing well post op. (2) Osteoporosis: Check vitamin D level. (3) Alzheimer's disease: Monitor for delirium. (4) DVT prophylaxis: SQ enoxaparin. Ambulate as able. (5) Discharge planning issues: Case Management consulted. Anticipated need for skilled care near patient's home in [place]. Subjective Recheck for hip fracture. Patient seen in her room around 1550. Family visiting. Repair with percutatneous screw performed by Dr. Hayes under spinal. Doing well postoperatively. No chest pain, cough, SOB, nausea, vomiting. Pain well-controlled. Physical Exam 2 Vital Signs (Past 24 Hours): Last Vital Signs Temp 36.9 C 09/05/18 16:02 Pulse 96 H 09/05/18 16:02 Resp 17 09/05/18 16:02 BP 157/90 H 09/05/18 16:02 Pulse Ox 94 09/05/18 16:02 Constitutional: no acute distress Respiratory: no respiratory distress Auscultation: lungs clear to auscultation bilaterally Cardiovascular: Rate/Rhythm: regular rate and regular rhythm Heart Sounds: no gallop, no murmur and no cardiac rub Vessels: no JVD Extremities: no calf tenderness and no edema Gastrointestinal (Abdomen): normal bowel sounds, soft, nontender, no hepatosplenomegaly Skin: no rashes, warm and dry Psychiatric: Orientation: alert (mild confusion, oriented to person, year, president, but not day or exact place) Results & Data Laboratory Results Laboratory Results - last 24 hr 09/05/18 09/05/18 09/05/18 05:16 05:16 05:16 WBC 8.83 RBC 4.64 Hgb 13.3 Hct 41.3 MCV 89.0 MCH 28.7 MCHC 32.2 RDW Std Deviation 46.8 H RDW Coeff of Jayme 14.4 Plt Count 222 MPV 9.7 Sodium 141 Potassium 3.6 Chloride 110 H Carbon Dioxide 27 Anion Gap 4.0 BUN 11 Creatinine 0.97 Est Cr Clr Drug Dosing 30.5 Est GFR ( Amer) 61.7 Est GFR (Non-Af Amer) 53.3 BUN/Creatinine Ratio 11.3 Glucose 95 Calcium 8.3 L Blood Type Recheck O Positive _ (1) Closed right hip fracture Encounter type: initial encounter Fracture healing: Qualified Code(s): S72.001A - Fracture of unspecified part of neck of right femur, initial encounter for closed fracture
[2018-09-05] MEDS: ACETAMINOPHEN 500 MG TAB PO PRN (20:10)
[2018-09-05] MEDS: MIRTAZAPINE TAB 15 MG TAB PO SCH (20:11)
[2018-09-05] MEDS: DOCUSATE SODIUM/SENNA 50/8.6MG TAB PO SCH (20:11)
[2018-09-06] MEDS: CEFAZOLIN 1000MG 1,000 MG/7.5 ML SYR IV SCH (00:11)
[2018-09-06] MEDS: MoRPHine SULFATE 4 MG/ML 1 ML CARP\\VIAL IV PRN ×2 (00:11→09:17)
[2018-09-06] MEDS: SODIUM CHLORIDE 0.9% 1000ML 1,000 ML IV SCH ×2 (06:13→19:18)
[2018-09-06] MEDS: TRAMADOL HCL 50 MG TABLET PO PRN ×3 (07:46→20:59)
[2018-09-06] MEDS: ENOXAPARIN INJ 30 MG/0.3 ML SYR SQ SCH (07:47)
[2018-09-06] MEDS: QUETIAPINE FUMARATE 25 MG TABLET PO SCH ×2 (07:47→20:59)
[2018-09-06 08:00] LABS: Hematocrit (blood only) 40.7 % (37-47); Hemoglobin 13.1 g/dL (12.0-16.0); Mean Corpuscular Hgb Conc 32.2 g/dL (32-36); Mean Corpuscular Volume 89.8 fL (80-100); Mean Platelet Volume 9.5 fL (7.4-10.4); Platelet Count 215 K/uL (130-400); RDW Coefficient of Variation 14.3 % (11.5-14.5); RDW Standard Deviation 47.3 fL (36.4-46.3); Red Blood Count 4.53 M/uL (4.2-5.4); White Blood Count 11.27 K/uL (4.8-10.8)
[2018-09-06 08:28] LABS: BUN Creatinine Ratio 13.7 (10-20); Calcium 8.2 mg/dl (8.5-10.1); Creatinine Clr Calc Pharmacy 34.8 ml/min; Est GFR (African American) 72.4; Est GFR (Non-African American) 62.5; Potassium 3.7 mmol/L (3.5-5.1)
--- NOTE | 2018-09-06 09:06 | Orthopedic Progress Note ---
Date of Service September 06, 2018 Assessment & Plan (1) Closed right hip fracture: POD 1 - s/p ORIF right hip fracture She may be out of bed weight bear as tolerated right hip. Ice/elevation right hip as needed for pain/swelling Continue regular diet Lovenox started today for DVT prophylaxis. Teds right lower extremity. AV impulse boots Vitamin D pending. She will start PT/OT today. No hip precautions necessary Case management for discharge - son would like discharge to facility in [place], closer to home, he will talk to orthopedist from [facility] regarding follow up. Patient will need a disc with x-rays to take to orthopedist. will discuss findings with Dr. Hayes and continue to follow. Dressing change planned for tomorrow. Subjective Patient resting in bed, eating breakfast. Son at bedside. She states that she has pain in her right hip with movement, denies pain at rest. Denies chest pain or shortness of breath. Son states that she seems to be doing well, just pain with movement. Has not been out of bed. Physical Exam 2 Vital Signs (Past 24 Hours): Last Vital Signs Temp 37.2 C 09/06/18 07:40 Pulse 93 H 09/06/18 07:40 Resp 18 09/06/18 07:40 BP 158/88 H 09/06/18 07:40 Pulse Ox 95 09/06/18 07:40 Physical Exam: Right hip dressing intact. No effusion right knee. Tolerates ankle ROM passively. Will only wiggle toes when asked, posterior tib. pulse 1+ . Distal sensation normal. Results & Data Laboratory Results 09/06/18 09/06/18 09/06/18 Range/Units 07:43 07:43 07:43 WBC 11.27 H (4.8-10.8) K/uL RBC 4.53 (4.2-5.4) M/uL Hgb 13.1 (12.0-16.0) g/dL Hct 40.7 (37-47) % MCV 89.8 (80-100) fL MCH 28.9 (25-34) pg MCHC 32.2 (32-36) g/dL RDW Std Deviation 47.3 H (36.4-46.3) fL RDW Coeff of Jayme 14.3 (11.5-14.5) % Plt Count 215 (130-400) K/uL MPV 9.5 (7.4-10.4) fL Sodium 140 (136-145) mmol/L Potassium 3.7 (3.5-5.1) mmol/L Chloride 106 (98-107) mmol/L Carbon Dioxide 28 (21-32) mmol/L Anion Gap 5.0 (3-11) BUN 12 (7-18) mg/dl Creatinine 0.85 (0.6-1.2) mg/dl Est Cr Clr Drug Dosing 34.8 ml/min Est GFR ( Amer) 72.4 Est GFR (Non-Af Amer) 62.5 BUN/Creatinine Ratio 13.7 (10-20) Glucose 124 H (70-99) mg/dl Calcium 8.2 L (8.5-10.1) mg/dl 25-OH Vitamin D Total Pending _ (1) Closed right hip fracture Encounter type: initial encounter Fracture healing: Qualified Code(s): S72.001A - Fracture of unspecified part of neck of right femur, initial encounter for closed fracture
--- NOTE | 2018-09-06 13:15 | Anesthesiology Progress Note ---
Date of Service September 06, 2018 Anesthesia Post Procedure Vital Signs Vital Signs: Temp Pulse Resp BP Pulse Ox 09/06/18 07:40 37.2 C 93 H 18 158/88 H 95 09/06/18 03:13 36.4 C L 105 H 18 152/80 H 95 09/06/18 01:03 131/74 09/05/18 22:45 37.1 C 99 H 18 182/94 H 92 09/05/18 19:33 37.7 C H 95 H 17 173/92 H 91 09/05/18 16:02 36.9 C 96 H 17 157/90 H 94 09/05/18 14:58 36.4 C L 97 H 17 121/77 100 09/05/18 13:59 36.4 C L 88 20 144/83 H 97 09/05/18 13:30 36.4 C 82 18 139/80 98 Notes Mental Status: alert / awake / arousable and participated in evaluation Nausea / Vomiting: adequately controlled Pain: adequately controlled Airway Patency, RR, SpO2: stable & adequate BP & HR: stable & adequate Hydration State: stable & adequate Neuraxial Anesthesia: was administered and sensory block resolved
[2018-09-06] MEDS: DOCUSATE SODIUM/SENNA 50/8.6MG TAB PO SCH (15:32)
--- NOTE | 2018-09-06 17:20 | Progress Note ---
DATE: 09/06/2018 She is sitting up in bedside chair. She was seen by PT and OT. The patient was discussed with physician's public aid eligibility assistant. Note reviewed. Agree with findings. Dressing clean and dry. She can dorsiflex her ankle. I think her effort is limiting strength, which I would rate at 4/5. She has 5-/5 ankle plantar flexion strength. Her leg is not swollen. I reviewed the findings and x-rays with her family. The plan is for her to go to a facility closer to home, which is in progress. She may weightbear as tolerated and we will have her on Lovenox 40 mg subQ daily starting today. Her labs and vitals are noted.
--- NOTE | 2018-09-06 20:14 | Hospitalist Progress Note ---
Date of Service September 06, 2018 Assessment & Plan (1) Closed right hip fracture: Status post repair by Dr. Hayes 09/05/18. POD # 1. Doing well post op. (2) Osteoporosis: Vitamin D level = 51.7. (3) Alzheimer's disease: Monitor for delirium. (4) DVT prophylaxis: SQ enoxaparin. Ambulate as able. (5) Discharge planning issues: Case Management consulted. Anticipated need for skilled care near patient's home in [place]. Subjective Recheck for hip fracture. Patient seen in her room around 1510. Son visiting. Repair with percutatneous screw performed by Dr. Hayes on 09/05. Doing well postoperatively. No chest pain, cough, SOB, nausea, vomiting. Pain well-controlled. Physical Exam 2 Vital Signs (Past 24 Hours): Last Vital Signs Temp 37.0 C 09/06/18 14:53 Pulse 109 H 09/06/18 14:53 Resp 14 09/06/18 14:53 BP 155/96 H 09/06/18 14:53 Pulse Ox 88 L 09/06/18 14:53 Constitutional: no acute distress sitting in chair at bedside Respiratory: no respiratory distress Auscultation: lungs clear to auscultation bilaterally Cardiovascular: Rate/Rhythm: regular rate and regular rhythm Heart Sounds: no gallop, no murmur and no cardiac rub Vessels: no JVD Extremities: no calf tenderness and no edema Gastrointestinal (Abdomen): normal bowel sounds, soft, nontender, no hepatosplenomegaly Skin: no rashes, warm and dry Psychiatric: Orientation: alert (mild confusion, oriented to person, year, president, but not day or exact place) Results & Data Laboratory Results Laboratory Results - last 24 hr 09/06/18 09/06/18 09/06/18 07:43 07:43 07:43 WBC 11.27 H RBC 4.53 Hgb 13.1 Hct 40.7 MCV 89.8 MCH 28.9 MCHC 32.2 RDW Std Deviation 47.3 H RDW Coeff of Jayme 14.3 Plt Count 215 MPV 9.5 Sodium 140 Potassium 3.7 Chloride 106 Carbon Dioxide 28 Anion Gap 5.0 BUN 12 Creatinine 0.85 Est Cr Clr Drug Dosing 34.8 Est GFR ( Amer) 72.4 Est GFR (Non-Af Amer) 62.5 BUN/Creatinine Ratio 13.7 Glucose 124 H Calcium 8.2 L 25-OH Vitamin D Total 51.7 _ (1) Closed right hip fracture Encounter type: initial encounter Fracture healing: Qualified Code(s): S72.001A - Fracture of unspecified part of neck of right femur, initial encounter for closed fracture
[2018-09-06] MEDS: MIRTAZAPINE TAB 15 MG TAB PO SCH (20:59)
[2018-09-07] MEDS: TRAMADOL HCL 50 MG TABLET PO PRN ×2 (04:00→10:42)
[2018-09-07] MEDS: SODIUM CHLORIDE 0.9% 1000ML 1,000 ML IV SCH ×2 (08:00→20:24)
[2018-09-07] MEDS: ENOXAPARIN INJ 30 MG/0.3 ML SYR SQ SCH (08:01)
[2018-09-07] MEDS: QUETIAPINE FUMARATE 25 MG TABLET PO SCH ×2 (08:03→20:19)
--- NOTE | 2018-09-07 08:50 | Orthopedic Progress Note ---
Date of Service September 07, 2018 Assessment & Plan (1) Closed right hip fracture: POD 2 - s/p ORIF right hip fracture She may be out of bed weight bear as tolerated right hip. Ice/elevation right hip as needed for pain/swelling Continue regular diet Lovenox started today for DVT prophylaxis. Teds right lower extremity. AV impulse boots Vitamin D normal. She will start PT/OT today. No hip precautions necessary Case management for discharge - son would like discharge to facility in [place], closer to home, he will talk to orthopedist from [facility] regarding follow up. Patient will need a disc with x-rays to take to orthopedist. Dressing changed today. Helen removed this morning. Dr. Hayes present for today's visit. Will continue to follow. Subjective Resting in bed, follows commands, eating a little bit of breakfast. Son at bedside. Physical Exam 2 Vital Signs (Past 24 Hours): Last Vital Signs Temp 37.1 C 09/07/18 07:16 Pulse 96 H 09/07/18 07:16 Resp 19 09/07/18 07:16 BP 169/89 H 09/07/18 07:16 Pulse Ox 93 09/07/18 07:16 Physical Exam: Right hip incision, with dried blood, no active drainage, no fluctuance or surrounding erythema or ecchymosis. Mildly tender with palpation. Incision cleaned with sterile saline wipe, new dressings applied right hip. Able to wiggle toes. SCD on right lower leg. Results & Data Laboratory Results 09/06/18 Range/Units 07:43 25-OH Vitamin D Total 51.7 (30-100) ng/ml WBC slightly elevated today, VSS _ (1) Closed right hip fracture Encounter type: initial encounter Fracture healing: Qualified Code(s): S72.001A - Fracture of unspecified part of neck of right femur, initial encounter for closed fracture
--- NOTE | 2018-09-07 15:48 | Hospitalist Progress Note ---
Date of Service September 07, 2018 Assessment & Plan (1) Closed right hip fracture: Status post repair by Dr. Hayes 09/05/18. Pain not well controlled on Tramadol. Added schedueld Tylenol and changed PRN to oxycodone. DC tramadol. Doing well post op but she has not had a full return of her appetite which will need to improve prior to departure. (2) Osteoporosis: (3) Alzheimer's disease: Monitor for delirium (4) Urine output low: bolused 500 mls this afternoon and asked nurses to encourage she is drinking with dinner. (5) DVT prophylaxis: SQ enoxaparin. Ambulate as able. Full Dispo-cont hospitalization until the patient is reliably tolerating PO on her own. Maryjo Peacock DO [facility] Hospitalist Subjective 83 yo F s/p mechanical fall with R hip fracture s/p ORIF on 09/05. Pain not well controlled. Pt not interested in food at this time and eating approx 30% of her intake at home per her son who is her caregiver and at the bedside today. Physical Exam 2 Vital Signs (Past 24 Hours): Last Vital Signs Temp 37.1 C 09/07/18 07:16 Pulse 96 H 09/07/18 07:16 Resp 19 09/07/18 07:16 BP 169/89 H 09/07/18 07:16 Pulse Ox 93 09/07/18 07:16 CONSTITUTIONAL: WNWD, vitals as above, generally appears guarded and in pain EYES: normal conjuctivae, no scleral icterus RESPIRATORY: clear to auscultation bilaterally, no crackles, rales or wheezes, normal respiratory effort. CARDIOVASCULAR: regular rate and rhythm, S1 and 2 heard without murmurs, gallops or rubs, no JVD, no peripheral edema GASTROINTESTINAL: normal bowel sounds, soft, nontender, nondistended MUSCULOSKELETAL: R leg flexed up and not easily moved without causing pain. SKIN: warm and dry NEUROLOGIC: grossly intact, abnormal memory PSYCHIATRIC: cooperative. Results & Data Medications Administered Current Inpatient Medications Acetaminophen (Tylenol) 1,000 mg PO Q8H [facility] Stop: 10/07/18 15:59 Last Admin: 09/07/18 16:27 Dose: 1,000 mg Bisacodyl (Dulcolax) 10 mg HI DAILY PRN PRN Reason: Constipation Stop: 10/04/18 16:54 Enoxaparin Sodium (Lovenox) 30 mg SQ Q24H [facility]; Protocol Stop: 10/06/18 08:59 Last Admin: 09/07/18 08:01 Dose: 30 mg Sodium Chloride (Nss 1000ml) 1,000 mls @ 75 mls/hr IV .[id number] [facility] Stop: 10/05/18 13:39 Last Admin: 09/07/18 20:24 Dose: 75 mls/hr Magnesium Hydroxide (Milk Of Magnesia) 30 ml PO DAILY PRN PRN Reason: Constipation Stop: 10/04/18 16:54 Mirtazapine (Remeron) 15 mg PO [facility] Stop: 10/04/18 20:59 Last Admin: 09/07/18 20:19 Dose: 15 mg Naloxone HCl (Narcan) 0.1 mg IV UD PRN PRN Reason: opiate overdose Stop: 10/04/18 16:54 Ondansetron HCl (Zofran) 4 mg IV Q6H PRN PRN Reason: Nausea And Vomiting Stop: 10/05/18 13:11 Oxycodone HCl (Roxicodone Immediate Rel) 5 mg PO Q4H PRN PRN Reason: severe pain Stop: 09/21/18 16:14 Last Admin: 09/07/18 22:27 Dose: 5 mg Quetiapine Fumarate (Seroquel) 25 mg PO BID [facility] Stop: 10/04/18 20:59 Last Admin: 09/07/18 20:19 Dose: 25 mg Senna/Docusate Sodium (Senokot S) 2 tab PO [facility] Stop: 10/04/18 20:59 Last Admin: 09/07/18 16:30 Dose: 2 tab _ (1) Alzheimer's disease Alzheimer's disease onset: unspecified onset Dementia behavioral disturbance : without behavioral disturbance Qualified Code(s): G30.9 - Alzheimer's disease , unspecified; F02.80 - Dementia in other diseases classified elsewhere without behavioral disturbance (2) Closed right hip fracture Encounter type: initial encounter Fracture healing: Qualified Code(s): S72.001A - Fracture of unspecified part of neck of right femur, initial encounter for closed fracture
[2018-09-07] MEDS ORDERED: OXYCODONE HCL IR 5 MG TAB (IMMEDIATE RELEASE) PO STA (16:05)
[2018-09-07] MEDS ORDERED: SODIUM CHLORIDE 0.9% 1000ML 500 ML IV ONE (16:12)
[2018-09-07] MEDS ORDERED: OXYCODONE HCL IR 5 MG TAB (IMMEDIATE RELEASE) PO SCH (16:15)
[2018-09-07] MEDS: ACETAMINOPHEN 500 MG TAB PO SCH ×2 (16:27→23:39)
[2018-09-07] MEDS: DOCUSATE SODIUM/SENNA 50/8.6MG TAB PO SCH (16:30)
[2018-09-07] MEDS: MIRTAZAPINE TAB 15 MG TAB PO SCH (20:19)
[2018-09-07] MEDS: OXYCODONE HCL IR 5 MG TAB (IMMEDIATE RELEASE) PO PRN (22:27)
[2018-09-08] MEDS: QUETIAPINE FUMARATE 25 MG TABLET PO SCH ×2 (08:18→20:23)
[2018-09-08] MEDS: ENOXAPARIN INJ 30 MG/0.3 ML SYR SQ SCH (08:19)
[2018-09-08] MEDS: ACETAMINOPHEN 500 MG TAB PO SCH ×3 (08:19→23:47)
--- NOTE | 2018-09-08 09:42 | Orthopedic Progress Note ---
Date of Service September 08, 2018 Assessment & Plan (1) Status post hip surgery: Dressing replaced today contine PT/OT encouraged to move her leg and straighten it will be seen by Dr. Hayes later today continue to follow pt seen and examined, agree. d/w family, spoke w dr kline, rojelio good, knee flexion should improve, did well in PT, continue PT, OT, lovenox until at least f/u september 21 w ortho, WBAT PSS. Subjective Son in room Sleeping when I entered. Wakes easily. No current pain. R leg flexed /externally rotated. States it is too painful to straighten/move. Still not eating well according to son. Urinating well. Physical Exam 2 Vital Signs (Past 24 Hours): Last Vital Signs Temp 37.0 C 09/08/18 07:39 Pulse 80 09/08/18 09:18 Resp 18 09/08/18 07:39 BP 175/82 H 09/08/18 09:18 Pulse Ox 93 09/08/18 07:39 Physical Exam: Laying in bed. Unwilling to move hip/knee. Intact motor to toes /ankle Dressings dislodged. Wound looks fine. Dry, scottie intact. Surrounding ecchymosis. Area tender to touch. N/V intact to right leg
[2018-09-08] MEDS: SODIUM CHLORIDE 0.9% 1000ML 1,000 ML IV SCH (11:19)
--- NOTE | 2018-09-08 12:34 | Hospitalist Progress Note ---
Date of Service September 08, 2018 Assessment & Plan (1) Closed right hip fracture: Status post repair by Dr. Hayes 09/05/18. Better pain control with oxy and scheduled Tylenol. Appetite improved. (2) Osteoporosis: Vitamin D level = 51.7. (3) Alzheimer's disease: Monitor for delirium (4) Urine output low: improved with ivf bolus and encourage fluid intake. (5) DVT prophylaxis: SQ enoxaparin. Ambulate as able. Full Dispo-likely dc in am DO [facility] Hospitalist Subjective pain better controlled no fevers or other symptoms today appetite improved UOP improved Physical Exam 2 Vital Signs (Past 24 Hours): Last Vital Signs Temp 37.0 C 09/08/18 07:39 Pulse 80 09/08/18 09:18 Resp 18 09/08/18 07:39 BP 175/82 H 09/08/18 09:18 Pulse Ox 93 09/08/18 07:39 CONSTITUTIONAL: WNWD, vitals as above, NAD EYES: normal conjuctivae, no scleral icterus RESPIRATORY: clear to auscultation bilaterally, no crackles, rales or wheezes, normal respiratory effort. CARDIOVASCULAR: regular rate and rhythm, S1 and 2 heard without murmurs, gallops or rubs, no JVD, no peripheral edema GASTROINTESTINAL: normal bowel sounds, soft, nontender, nondistended MUSCULOSKELETAL: NVI, limited movement s/p recent surgery SKIN: warm and dry NEUROLOGIC: grossly intact, abnormal memory PSYCHIATRIC: cooperative. Results & Data Medications Administered Current Inpatient Medications Acetaminophen (Tylenol) 1,000 mg PO Q8H [facility] Stop: 10/07/18 15:59 Last Admin: 09/08/18 23:47 Dose: 1,000 mg Bisacodyl (Dulcolax) 10 mg MI DAILY PRN PRN Reason: Constipation Stop: 10/04/18 16:54 Enoxaparin Sodium (Lovenox) 30 mg SQ Q24H [facility]; Protocol Stop: 10/06/18 08:59 Last Admin: 09/08/18 08:19 Dose: 30 mg Hydralazine HCl (Apresoline) 10 mg PO QID PRN PRN Reason: Hypertension Stop: 10/09/18 08:59 Last Admin: 09/09/18 03:20 Dose: 10 mg Sodium Chloride (Nss 1000ml) 1,000 mls @ 75 mls/hr IV .[id number] [facility] Stop: 10/05/18 13:39 Last Infusion: 09/09/18 04:15 Dose: 75 mls/hr Magnesium Hydroxide (Milk Of Magnesia) 30 ml PO DAILY PRN PRN Reason: Constipation Stop: 10/04/18 16:54 Mirtazapine (Remeron) 15 mg PO [facility] Stop: 10/04/18 20:59 Last Admin: 09/08/18 20:23 Dose: 15 mg Naloxone HCl (Narcan) 0.1 mg IV UD PRN PRN Reason: opiate overdose Stop: 10/04/18 16:54 Ondansetron HCl (Zofran) 4 mg IV Q6H PRN PRN Reason: Nausea And Vomiting Stop: 10/05/18 13:11 Oxycodone HCl (Roxicodone Immediate Rel) 5 mg PO Q4H PRN PRN Reason: severe pain Stop: 09/21/18 16:14 Last Admin: 09/09/18 03:20 Dose: 5 mg Quetiapine Fumarate (Seroquel) 25 mg PO BID [facility] Stop: 10/04/18 20:59 Last Admin: 09/08/18 20:23 Dose: 25 mg Senna/Docusate Sodium (Senokot S) 2 tab PO [facility] Stop: 10/04/18 20:59 Last Admin: 09/08/18 20:23 Dose: 2 tab _ (1) Alzheimer's disease Alzheimer's disease onset: unspecified onset Dementia behavioral disturbance : without behavioral disturbance Qualified Code(s): G30.9 - Alzheimer's disease , unspecified; F02.80 - Dementia in other diseases classified elsewhere without behavioral disturbance (2) Closed right hip fracture Encounter type: initial encounter Fracture healing: Qualified Code(s): S72.001A - Fracture of unspecified part of neck of right femur, initial encounter for closed fracture
[2018-09-08] MEDS: OXYCODONE HCL IR 5 MG TAB (IMMEDIATE RELEASE) PO PRN ×2 (15:36→23:08)
[2018-09-08] MEDS: MIRTAZAPINE TAB 15 MG TAB PO SCH (20:23)
[2018-09-08] MEDS: DOCUSATE SODIUM/SENNA 50/8.6MG TAB PO SCH (20:23)
[2018-09-09] MEDS ORDERED: HydrALAZINE 10 MG TAB PO PRN (01:41)
[2018-09-09] MEDS: SODIUM CHLORIDE 0.9% 1000ML 1,000 ML IV SCH ×2 (01:54→12:22)
[2018-09-09] MEDS: OXYCODONE HCL IR 5 MG TAB (IMMEDIATE RELEASE) PO PRN ×3 (03:20→12:40)
[2018-09-09] MEDS ORDERED: AMLODIPINE BESYLATE 5 MG TAB PO ONE (08:30)
[2018-09-09] MEDS: ACETAMINOPHEN 500 MG TAB PO SCH (08:45)
[2018-09-09] MEDS: QUETIAPINE FUMARATE 25 MG TABLET PO SCH (08:46)
[2018-09-09] MEDS: ENOXAPARIN INJ 30 MG/0.3 ML SYR SQ SCH (08:46)
--- NOTE | 2018-09-09 10:57 | Discharge Summary ---
Date of Service September 09, 2018 Admission HPI Per Admitting Provider This is an 83-year-old female with a PMH of Alzheimer's disease and osteoporosis who presents after a fall in her hotel room last evening. Patient is traveling with her son and [id number] from [facility] for the weekend. Was using bedside commode in her hotel room when she slid off, landing on her right side. Denies head trauma or LOC. Was initially complaining of right knee pain but was able to sleep through the night. This morning, son was attempting to help transfer patient but she was having difficulty moving due to pain. Brought her to the ED for further evaluation. Patient endorses constant right hip pain, exacerbated by movement and somewhat alleviated by IV morphine. Has an abrasion on side of face that is non-tender. Denies any fever, chills, lightheadedness, headache, chest pain, palpitations, shortness of breath, nausea, vomiting, abdominal pain, dysuria, diarrhea or constipation. Last bowel movement was yesterday. Patient's PCP is located in [place], [place]. Ambulatory baseline is with a walker at home, but uses a wheelchair when traveling. No known cardiac or pulmonary medical history. Denies history of VT, CHF, DVT/PE, CVA or CKD. A few years ago, was experiencing failure to thrive due and appetite suppression from medications for dementia and was placed on hospice. Once medications were stopped, the patient reportedly gained 40 pounds and was taken off of hospice. Health has been much better since then. Son and [id number] live with patient. Admission Exam Per Admitting Provider General Appearance: WD/WN, no apparent distress, mild distress from pain Head: normocephalic, atraumatic Eyes: normal inspection, PERRL, EOMI ENT: hearing grossly normal, pharynx normal (moist mucous membranes) Neck: supple, no JVD, no adenopathy Respiratory/Chest: lungs clear to auscultation. No wheezes, rales or rhonci. No respiratory distress or accessory muscle use Cardiovascular: regular rate, rhythm, no murmur, normal peripheral pulses Abdomen/GI: normal bowel sounds, soft, non-tender to palpation : Cervantes catheter in place Extremities/Musculoskelatal: normal inspection, no calf tenderness, normal capillary refill, no pedal edema. Right hip tender to palpation. Skin intact. No deformities or bruising noted. Neurologic/Psych: alert, normal mood/affect, oriented x 3 Skin: normal color, warm/dry Principal Diagnosis R hip fracture s/p ORIF Discharge Data Allergies Allergy/AdvReac Type Severity Reaction Status Date / Time methylphenidate Allergy Severe Palpitation Unverified 09/04/18 13:15 [From Ritalin] s bupropion Allergy Intermediate Nausea Unverified 09/04/18 13:15 desvenlafaxine [From Pristiq] Allergy Intermediate Nausea Unverified 09/04/18 13:15 Sulfa (Sulfonamide Allergy Intermediate Nausea Unverified 09/04/18 13:15 Antibiotics) trazodone Allergy Intermediate Nausea Unverified 09/04/18 13:15 vilazodone Allergy Intermediate Nausea Unverified 09/04/18 13:15 Consultations 09/04/18 13:38 ED Decision to Admit Stat 09/04/18 16:55 Consult Anesthesiology Routine Consult Case Management - Discharge Planning Routine Consult Orthopedic Surgery Routine 09/05/18 13:12 Consult Case Management - Discharge Planning Routine Procedures Performed Operation Date: 09/05/18 09:40 Actual Procedures p Right Hip Percutaneous Screw(Right) - Fantasma Hayes MD Ordered Studies 09/05/18 07:00 FL fluoroscopy <1hr Routine FL hip RT 2-3V Routine Hospital Course (1) Closed right hip fracture: Status post repair by Dr. Hayes 09/05/18. Pain not well controlled on Tramadol. Added schedueld Tylenol and changed PRN to oxycodone. DC tramadol. Doing well post op but she required a couple of days for full return of her appetite prior to departure. Cont post-op recommendations including Lovenox for DVT prophylaxis. Dispo to rehab facility. (2) Osteoporosis: (3) Alzheimer's disease: (4) Urine output low: Resovled prior to discharge. Total Time Total Time Spent Total Time Spent (In Minutes): 60 Total Time Includes: Examination of the Patient, Discharge Planning, Medication Reconciliation and Communication With Other Providers Discharge Plan Discharge Items Patient Disposition: Transfer Shelter Fac Reason For Visit: R HIP FRACTURE Discharge Diagnosis: R hip fracture s/p ORIF Condition: Good Discharge Goals: Improve function and Increase independence Activity: As commented below Activity Comment: per receiving facility Weightbearing: Right weightbearing Weightbearing Comment: with walker; no hip precautions Non-emergency contact: Primary Care Provider and Surgeon Call non-emergency contact if: you have any medication questions, your symptoms worsen, your pain is not controlled, your pain is worsening, your pain is unusual for you, your pain is concerning for you and you have a fever Diet: Regular Diet Texture: Dental soft (bite-sized) Addtl Provider Instructions: Weight bear as tolerated right lower extremity Full range of motion right hip as tolerated, no hip precautions necessary Keep incision covered, redress daily and as needed. Ice to right hip as needed for pain/swelling Elevate right lower extremity to relieve pain and/or swelling Okay to shower 4-5 days after surgery. Pat incision dry, do not scrub or soak incision. Lovenox daily for DVT prophylaxis PARAMJIT stocking bilateral lower extremity - on during the day; off at night Follow up with orthopaedic surgeon in [place] - close to your home. You will need an appointment 10-14 days after surgery for stable removal and wound check. ADDITIONAL PROVIDER INSTRUCTIONS: Please take all medications as instructed on discharge list below. Please follow all Orthopedic post-operative instructions as above and follow up with your primary care physician within one week of discharge. Staff at receiving facility should monitor blood pressure daily to ensure that it is reliably at goal. It was a pleasure taking care of you! Please call if you have any questions or problems. You can reach a [facility] hospitalist on duty at [facility] 24 hours a day by calling [phone]. Take care of yourself. Maryjo Peacock, DO [facility] Hospitalist Prescriptions: New enoxaparin [Lovenox] 30 mg/0.3 mL Syringe 30 mg subcut Q24H Qty: 3 RF: 0 acetaminophen [Pain Reliever] 500 mg Tablet 1,000 mg PO Q8H 10 Days Qty: 60 RF: 0 oxycodone 5 mg Tablet 5 mg PO Q4H PRN (Reason: severe pain) Qty: 14 RF: 0 Continued quetiapine [Seroquel] 25 mg Tablet 25 mg PO BID RF: 0 docusate sodium [Colace] 100 mg Capsule 100 mg PO BID RF: 0 mirtazapine 15 mg Tablet 15 mg PO HS RF: 0 cholecalciferol (vitamin D3) [Vitamin D3] 1,000 unit Capsule 1,000 unit PO QAM RF: 0 Stand-Alone Forms: My [facility] Discharge Orders: Discharge Order (Routine); Ordered 09/09/18 Ordered By: Maryjo Peacock Skilled Items Patient informed of condition?: Yes DNR: No Discharge Level of Care: Skilled Communicable Disease: No Discharge Prognosis: Stable Admission Data Admit Date/Time: 09/04/18 15:08 Attending Provider: Maryjo Peacock Admit Provider: Kari Grigsby Primary Care Provider: Sandee Coto Other Providers: Kari Grigsby ; Fantasma Hayes ; Jame Mcadams Service: Medical Other Interventions: Discharge Summary Assessment (RN) Last Done: 09/09/18 12:33 DC Date/Time DO NOT enter until pt leaves facility: 09/09/18 12:59
== END 2018-09-09 12:59 | DRG 482 ==
LOC: ED 11:55 → SUATTDRO 15:08 → 3W 15:08
DX: Z90.49 Acquired absence of other specified parts of digestive tract; W18.11XA Fall from or off toilet without subsequent striking against object, initial encounter; S72.001A Fracture of unspecified part of neck of right femur, initial encounter for closed fracture; Z88.2 Allergy status to sulfonamides; Z88.8 Allergy status to other drugs, medicaments and biological substances; S00.81XA Abrasion of other part of head, initial encounter; F02.80 Dementia in other diseases classified elsewhere, unspecified severity, without behavioral disturbance, psychotic disturbance, mood disturbance, and anxiety; G30.9 Alzheimer's disease, unspecified; M81.0 Age-related osteoporosis without current pathological fracture; Z83.3 Family history of diabetes mellitus